=== PATIENT | female | born 1995 | race Caucasian/White ===

== ENCOUNTER 2018-07-17 23:47 | Emergency (ER) | payer SELFPAY ==
[~2018-07-17] VITALS: Ht 162.6 cm; Wt 54.4 kg
[2018-07-17 23:53] VITALS: BP 104/70
--- NOTE | 2018-07-17 23:53 | NUR ---
ED Nurse Note: Pt was BIBA from home. C/o accidentaly ingested a " Percocet x1 pill " today and feeling passed out and called 911 by her roommate today. Pt is A/O X 4. Vital signs stable at this time, waiting for orders.
--- NOTE | 2018-07-17 23:58 | NUR ---
ED Nurse Note: Urine sample collected and sent to Lab.
--- NOTE | 2018-07-17 23:58 | Emergency Room Report ---
History of Present Illness General Chief Complaint: Overdose Source: Patient Present Illness HPI This is a 22-year-old female with no significant past medical history. She presents with chief complaint of a opioid overdose. She is visiting here on vacation. She bought and oxycodone 15 mg. She broken in half and splinted it with her friend. She got it up and snorted it. Afterward she was apneic. Friend called 911. EMS gave her 2 mg Narcan which woke her up. Patient denies suicidal thoughts or homicidal thought. Patient denies any other complaint. Allergies: Coded Allergies: No Known Allergies (Unverified , 07/17/18) Patient History Past Medical History: see triage record, old chart reviewed Past Surgical History: none Pertinent Family History: none Social History: Denies: smoking Now: No Immunizations: other Reviewed Nursing Documentation: PMH: Agreed; PSxH: Agreed Nursing Documentation-PMH Past Medical History: No Stated History Review of Systems Eye: Denies: eye pain, blurred vision ENT: Denies: ear pain, nose congestion, throat swelling Respiratory: Denies: cough, shortness of breath Cardiovascular: Denies: chest pain, palpitations Gastrointestinal: Denies: abdominal pain, diarrhea, nausea, vomiting Musculoskeletal: Denies: back pain, joint pain Skin: Denies: rash Neurological: Denies: headache, numbness Endocrine: Denies: increased thirst, increased urine Hematologic/Lymphatic: Denies: easy bruising All Other Systems: negative except mentioned in HPI Physical Exam Vital Signs Date Time Temp Pulse Resp B/P (MAP) Pulse Ox O2 Delivery O2 Flow Rate FiO2 07/17/18 23:47 98.6 87 16 98 Room Air vitals unremarkable Sp02 EP Interpretation: reviewed, normal General Appearance: well appearing, no apparent distress, alert Head: normocephalic, atraumatic Eyes: bilateral eye PERRL, bilateral eye EOMI ENT: hearing grossly normal, normal pharynx Neck: full range of motion, supple, no meningismus Respiratory: chest non-tender, lungs clear, normal breath sounds Cardiovascular #1: regular rate, rhythm, no murmur Gastrointestinal: normal bowel sounds, non tender, no mass, no organomegaly, no bruit, non-distended Musculoskeletal: back normal, gait/station normal, normal range of motion Psychiatric: mood/affect normal Skin: warm/dry Medical Decision Making Diagnostic Impression: Primary Impression: Opioid overdose Qualified Codes: T40.2X1A - Poisoning by other opioids, accidental ( unintentional), initial encounter ER Course Patient presents with opioid overdose. No evidence of suicidal thoughts or homicidal thought. No criteria for 5150. Patient is been awake and on her phone for the last hour. We'll discharge home. She is currently taking Flagyl for bacterial vaginosis. Last Vital Signs Date Time Temp Pulse Resp B/P (MAP) Pulse Ox O2 Delivery O2 Flow Rate FiO2 07/17/18 23:47 98.6 87 16 98 Room Air Status: improved Disposition: HOME, SELF-CARE Condition: Stable Additional Instructions: Follow-up with your doctor in 7 days. Return if worse. George Rodgers MD July 17, 2018 23:58
--- NOTE | 2018-07-18 00:05 | NUR ---
ED Nurse Note: Meds given as ordered.
[2018-07-18 00:11] LABS: APPEARANCE,URINE SLIGHTLY CLOUDY; BILIRUBIN, URINE NEGATIVE (NEGATIVE); COLOR,URINE PALE YELLOW; GLUCOSE, URINE (UA) NEGATIVE (NEGATIVE); KETONES,URINE NEGATIVE (NEGATIVE); LEUKOCYTE ESTERASE ,URINE 3+ (NEGATIVE); NITRITE,URINE NEGATIVE (NEGATIVE); PH,URINE 5 (4.5-8.0); PROTEIN,URINE 3+ (NEGATIVE); UROBILINOGEN,URINE 1 MG/DL (0.0-1.0)
--- NOTE | 2018-07-18 00:40 | NUR ---
ED Nurse Note: Urine Marijuana was positive.
[2018-07-18 01:07] VITALS: BP 106/71
--- NOTE | 2018-07-18 01:07 | NUR ---
ER DISCHARGE NOTE: Patient is cleared to be discharged per Dr. Rodgers. Pt is fully alert and orintated at this time. Pt was given dc and prescription instructions and was able to verbalize understanding. Pt ID band and IV site removed without complications. Pt is able to ambulate with steady gait and took all belongings.
== END 2018-07-18 01:07 | disposition home or self-care (01) ==
LOC: EDBD 23:47 → EMR 23:59
DX: T40.2X1A Poisoning by other opioids, accidental (unintentional), initial encounter (principal); X58.XXXA Exposure to other specified factors, initial encounter; Y92.9 Unspecified place or not applicable
CPT/HCPCS: 80307; 81003; 81025; 96360; 99284